=== PATIENT | female | born 1990 | race African-American/Black ===

== ENCOUNTER 2018-09-15 21:23 | Emergency (ER) | payer SELFPAY ==
[2018-09-15 22:31] VITALS: BP 124/66
[2018-09-16 02:26] LABS: APPEARANCE,URINE SLIGHTLY-CLOUDY; BILIRUBIN,URINE NEGATIVE (NEGATIVE); COLOR,URINE YELLOW; GLUCOSE, URINE NEGATIVE (NEGATIVE); KETONES,URINE NEGATIVE (NEGATIVE); LEUKOCYTE ESTERASE,URINE NEGATIVE (NEGATIVE); NITRITE,URINE NEGATIVE (NEGATIVE); PROTEIN,URINE NEGATIVE (NEGATIVE); URINE SPECIFIC GRAVITY 1.029; UROBILINOGEN,URINE NEGATIVE mg/dL (<2.0)
--- NOTE | 2018-09-16 03:19 | ER Document Report ---
ED General - General Chief Complaint: Abdominal Pain Stated Complaint: ABDOMINAL PAIN Time Seen by Provider: 09/16/18 01:20 TRAVEL OUTSIDE OF THE [place] IN LAST 30 DAYS: No - HPI Notes: Presents to the emergency department for evaluation of lower abdominal pain. She states it feels like "period cramps but extra." She is currently menstruation. She is having a normal volume menstruation, normal amounts of tampons. She denies any vaginal discharge. No urinary symptoms. She states the pain is in her lower pelvis but focuses more on the right side. She states intermittently she is been having pain radiating down the left anterior thigh. Again this is not significantly abnormal. She states she was at work and seemed uncomfortable, her boss told her she should come to the emergency department to be evaluated. No fevers or chills. Normal appetite. No vomiting. No urinary symptoms. Normal bowel movements. - Related Data Allergies/Adverse Reactions: No Known Allergies Allergy (Unverified 09/15/18 21:29) Past Medical History - General Information source: Patient - Social History Smoking Status: Unknown if Ever Smoked Family History: Reviewed & Not Pertinent Review of Systems - Review of Systems Constitutional: No symptoms reported EENT: No symptoms reported Cardiovascular: No symptoms reported Respiratory: No symptoms reported Gastrointestinal: See HPI Genitourinary: No symptoms reported Female Genitourinary: See HPI Musculoskeletal: See HPI Skin: No symptoms reported Neurological/Psychological: No symptoms reported Physical Exam - Vital signs Vitals: Temp Pulse Resp BP Pulse Ox 98.0 F 68 20 124/66 98 09/15/18 22:30 09/15/18 22:30 09/15/18 22:30 09/15/18 22:30 09/15/18 22:30 Interpretation: Normal - Notes Notes: Vital signs reviewed, please refer to chart. Patient is normocephalic, atraumatic. Pupils equal round, reactive to light. Neck is supple without meningismus. Heart is regular rate and rhythm. Lungs are clear to auscultation bilaterally. Abdomen is soft, nontender, normoactive bowel sounds throughout. Extremities without cyanosis, clubbing, edema. Peripheral pulses are equal. Skin is warm and dry. Patient is awake, alert, neurological exam is nonfocal. Course - Re-evaluation Re-evalutation: 09/16/18 06:31 Presents to the emergency department for evaluation. She initially had labs reflexively ordered. The patient refused these, stating "I am not to be charged for all that." I did go ahead and order a urinalysis which was largely unremarkable. The patient's abdomen was actually nontender. I spoke suspect this is more menstrual cramps than anything else. Did treat her with symptomatic medications as an outpatient. We will have her follow-up with primary care, she is to return to the emergency department with worsening or new concerning symptoms of any sort. - Vital Signs Vital signs: Temp Pulse Resp BP Pulse Ox 98.0 F 68 20 124/66 98 09/15/18 22:30 09/15/18 22:30 09/15/18 22:30 09/15/18 22:30 09/15/18 22:30 - Laboratory Laboratory results interpreted by me: 09/16/18 01:39 Urine Blood SMALL H Discharge - Discharge Clinical Impression: Menstrual cramps Abdominal pain Qualifiers: Abdominal location: lower abdomen, unspecified Qualified Code(s): R10.30 - Lower abdominal pain, unspecified Condition: Stable Disposition: HOME, SELF-CARE Instructions: Abdominal Pain ([facility]) Additional Instructions: Take medication as prescribed. Follow-up with your doctor next week. Return to the emergency department with worsening or new concerning symptoms. Prescriptions: Naproxen [Naprosyn 375 Mg Tablet] 375 mg PO BID #20 tablet Forms: Return to Work
== END 2018-09-16 03:52 | disposition home or self-care (01) ==
LOC: ER 21:23
DX: N94.6 Dysmenorrhea, unspecified (principal); R10.30 Lower abdominal pain, unspecified
CPT/HCPCS: 81001; 81025; 99284